=== PATIENT | male | born 1995 | race Two or more races ===

== ENCOUNTER 2019-02-18 13:33 | Emergency (ER) | payer BC ==
[2019-02-18 13:46] VITALS: BP 122/75; PULSE 60; TEMP 98.2; BMI 25.9
--- NOTE | 2019-02-18 14:36 | PDOC ---
History of Present Illness - General Chief Complaint: Sore Throat Stated Complaint: SORES ON LIPS Time Seen by Provider: 02/18/19 13:56 - History of Present Illness Initial Comments: 02/18/19 14:34 23-year-old male requesting treatment for cold sore which is been present for 2 days. Originally also wanted to be tested for HIV he is declined that option at this point. Past History - Past Medical History Allergies/Adverse Reactions: Allergies Allergy/AdvReac Type Severity Reaction Status Date / Time No Known Allergies Allergy Verified 02/18/19 13:41 Home Medications: Ambulatory Orders Acyclovir [Zovirax -] 800 mg PO 5XD #35 tablet 02/18/19 COPD: No Other medical history: herpes simplex. - Psycho Social/Smoking Cessation Hx Smoking History: Current some day smoker Information on smoking cessation initiated: No Hx Alcohol Use: Yes (occasional) Drug/Substance Use Hx: Yes (weed) Review of Systems - Review of Systems Integumentary: Yes: Rash *Physical Exam - Vital Signs Last Vital Signs Temp Pulse Resp BP Pulse Ox 98.2 F 60 16 122/75 100 02/18/19 13:42 02/18/19 13:42 02/18/19 13:42 02/18/19 13:42 02/18/19 13:42 - Physical Exam 02/18/19 14:34 GENERAL: The patient is awake, alert, and fully oriented, in no acute distress. HEAD: Normal with no signs of trauma. EYES: sclera anicteric, conjunctiva clear. ENT: Ears normal tympanic membranes normal oropharynx clear uvula midline NECK: Normal range of motion NEUROLOGICAL: Cranial nerves II through XII grossly intact. Normal speech, normal gait. PSYCH: Normal mood, normal affect. SKIN: Warm, Dry, normal turgor, no rashes or lesions noted. There is a vesicular lesion on the lateral aspect of the upper left on the left side. Medical Decision Making - Medical Decision Making 02/18/19 14:35 Acyclovir follow-up with PCP Discharge - Discharge Information Problems reviewed: Yes Clinical Impression/Diagnosis: Facial herpetic lesions Condition: Stable Disposition: HOME - Admission No - Additional Discharge Information Prescriptions: Acyclovir [Zovirax -] 800 mg PO 5XD #35 tablet - Follow up/Referral - Patient Discharge Instructions Patient Printed Discharge Instructions: Cold Sores, DI for Cold Sores Additional Instructions: Please take the medication as directed and return to the emergency room should symptoms worsen. Follow-up with your primary care physician for HIV testing and further evaluation and treatment options. - Post Discharge Activity
== END 2019-02-18 14:40 | disposition home or self-care (01) ==
LOC: JERFT 13:33
DX: B00.9 Herpesviral infection, unspecified (principal)
CPT/HCPCS: 99281-25